=== PATIENT | male | born 1950 ===

== ENCOUNTER 2018-11-08 07:10 | Day surgery (SDC) | payer MEDICARE ==
[2018-11-08 07:35] VITALS: BMI 22.6
[2018-11-08] MEDS ORDERED: Lactated Ringer's 500 ML IV ONE (07:37)
[2018-11-08 07:46] VITALS: TEMP 97
[2018-11-08] MEDS ORDERED: Midazolam 2 MG/2 ML VIAL ONE (09:38)
[2018-11-08] MEDS ORDERED: Propofol 10 mg/ml Inj (20 ML) ONE (09:39)
[2018-11-08 10:45] VITALS: BP 105/71; PULSE 54; RESP 15; O2SAT 100
== END 2018-11-08 12:25 | disposition home or self-care (01) ==
LOC: H.ENDO 07:10
PROVIDERS: ATTEND Internal Medicine Gastroenterology
DX: Z12.11 Encounter for screening for malignant neoplasm of colon (principal); K64.8 Other hemorrhoids
CPT/HCPCS: 45378; J2001; J2250; J2704; J7120